=== PATIENT | female | born 1955 | race Caucasian/White ===

== ENCOUNTER → 2016-10-01 | Outpatient (CLI) | payer MEDICAID ==
[~2016-10-01] MED LIST: ADVIL200 MG PO; APRESOLINE 25MG25 MG PO; GLUCOPHAGE500 MG/TAB PO; LOPRESSOR 225 MG/TAB PO; MACROBID 1100 MG/CAP PO; MOBIC15 MG PO; NORVASC 10MG10 MG PO; NORVASC2.5 MG PO; ULTRAM 50MG TAB50 MG PO; ZESTRIL 20MG TA20 MG PO; ZESTRIL2.5 MG PO; ZOFRAN8 MG PO
[2016-10-01 16:39] LABS: BASO % 0.5 % (0.0-2.0); EOS # 0.1 (0.0-0.7); EOS % 2.7 % (0-4.0); GRAN # 1.9 (1.4-6.5); GRAN % 46.2 % (42.2-75.2); LYMPH # 1.5 (1.2-3.4); LYMPH % 36.9 % (20.0-51.0); MEAN CELL VOLUME 87 fl (80.0-100.0); MEAN CORPUSCULAR HGB CONC 31 g/dl (33.0-37.0); MEAN PLATELET VOLUME 10.3 fl (7.4-10.4); MONO # 0.6 (0.1-0.6); MONO % 13.5 % (1.7-9.3); PLATELET COUNT 325 K/mm3 (130-400); RED BLOOD COUNT 3.92 M/mm3 (4.10-5.30); REDCELL DISTRIBUTION WIDTH-CV 13.1 % (11.5-14.5); WHITE BLOOD COUNT 4.2 K/mm3 (4.8-10.8)
[2016-10-01 16:49] LABS: HEMATOCRIT 34.1 % (37.0-47.0); HEMOGLOBIN 10.4 g/dl (12.5-16.0); MEAN CORPUSCULAR HEMOGLOBIN 27 pg (27.0-31.0)
[2016-10-01 16:50] LABS: ADJUSTED CALCIUM 8.9 mg/dL (8.4-10.2); ALBUMIN 4.1 gm/dL (3.5-5.0); BILIRUBIN,TOTAL 0.7 mg/dL (0.0-1.0); CREATININE, serum 0.83 mg/dL (0.52-1.25); POTASSIUM 4.3 mmol/L (3.4-5.0); TOTAL PROTEIN 7.9 gm/dL (6.4-8.2)
[2016-10-01 17:22] LABS: ERYTHROCYTE SEDIMENTATION RATE 30 mm/hr (0-30)
[2016-10-01 17:28] LABS: URIC ACID 6.4 mg/dL (2.5-6.2)
== END ==
LOC: COL.LAB 15:33
PROVIDERS: Registered Nurse
DX: M25.50 Pain in unspecified joint (principal); E11.9 Type 2 diabetes mellitus without complications

== ENCOUNTER 2016-10-23 19:27 | Emergency (ER) | payer MEDICAID ==
[~2016-10-23] VITALS: Ht 154.9 cm; Wt 118.2 kg
[~2016-10-23 19:27] MED LIST changes: -MACROBID 1100 MG/CAP PO; -ZOFRAN8 MG PO
[2016-10-23 19:32] VITALS: BP 126/73; PULSE 70; TEMP 97.5
[2016-10-23] MEDS ORDERED: MACROBID 1100 MG/CAP PO (19:58)
[2016-10-23] MEDS ORDERED: ZOFRAN8 MG PO (19:58)
[2016-10-23 20:07] LABS: PH 6 (5-8); URINE APPEARANCE Hazy; URINE BACTERIA Rare /hpf; URINE BILIRUBIN Negative (NEGATIVE); URINE BLOOD Negative (NEGATIVE); URINE COLOR Straw; URINE GLUCOSE Negative (NEGATIVE); URINE KETONE Negative (NEGATIVE); URINE UROBILINOGEN Negative (NEGATIVE)
[2016-10-23 20:08] LABS: URINE WBC 20-50 /hpf
== END 2016-10-23 20:16 | disposition home or self-care (01) ==
LOC: COL.ER 19:27
PROVIDERS: Emergency Medicine
DX: N39.0 Urinary tract infection, site not specified (principal); E11.9 Type 2 diabetes mellitus without complications; I10 Essential (primary) hypertension